=== PATIENT | male | born 2000 | race Caucasian/White ===

== ENCOUNTER 2019-12-17 20:17 | Emergency (ER) | payer OTHER ==
[~2019-12-17] VITALS: Ht 170.2 cm; Wt 84.1 kg
[2019-12-17 21:32] LABS: INFLUENZA A AMPLIFICATION NEGATIVE (NEGATIVE); INFLUENZA B AMPLIFICATION NEGATIVE (NEGATIVE)
[2019-12-17 23:40] VITALS: BP 155/85
--- NOTE | 2019-12-18 14:25 | REP ---
REASON: Cough and dyspnea. TWO-VIEW CHEST: COMPARISON: No priors. FINDINGS: The superior mediastinal structures are midline. The cardiac silhouette is unremarkable in size, shape, and position. The diaphragmatic surfaces of the lungs are regular, and the costophrenic angles are clear. The pulmonary da silva are clear. The imaged osseous structures are intact. IMPRESSION: There is no acute cardiopulmonary disease. Unreviewed
== END 2019-12-17 23:42 | disposition home or self-care (01) ==
LOC: M ED 20:17
DX: J06.9 Acute upper respiratory infection, unspecified (principal); F17.200 Nicotine dependence, unspecified, uncomplicated